=== PATIENT | female | born 1990 | race Two or more races ===

== ENCOUNTER 2020-12-10 05:11 | Inpatient (IN) | payer BC, MEDICAID ==
[~2020-12-10 05:11] MED LIST: Sodium Chloride 0.9% 10 ML Syringe FLUSH PRN
[2020-12-10] MEDS ORDERED: Metoclopramide 10 MG/2 ML SDV ONE (05:28)
[2020-12-10] MEDS ORDERED: Lactated Ringers 1,000 ML ONE (05:28)
[2020-12-10] MEDS ORDERED: Citric Acid/Sodium Citrate Solution 30 ML Cup ONE (05:28)
[2020-12-10] MEDS: Lactated Ringers 1,000 ML IV SCH ×2 (05:45→06:53)
[2020-12-10] MEDS ORDERED: Citric Acid/Sodium Citrate Solution 30 ML Cup PO ONE (06:45)
[2020-12-10] MEDS ORDERED: Metoclopramide 10 MG/2 ML SDV IVPUSH ONE (06:45)
[2020-12-10] MEDS ORDERED: ceFAZolin 2 GM in Premix Bag 1 BAG IV ONE (07:00)
[2020-12-10] MEDS ORDERED: Oxytocin/Lactated Ringers 10 UNIT/1,000 ML BAG IV SCH (07:00)
[2020-12-10] MEDS ORDERED: Bupivacaine 0.5% 30 ML SDV ONE (07:06)
[2020-12-10] MEDS ORDERED: Morphine PF 10 MG/10 ML SDV ONE (07:16)
[2020-12-10] MEDS ORDERED: ceFAZolin 1 GM Vial ONE ×2 (07:16)
[2020-12-10] MEDS ORDERED: Ketorolac 30 MG/ML SDV ONE (07:17)
[2020-12-10] MEDS ORDERED: Oxytocin 10 Units/1 ML SDV ONE (07:17)
--- NOTE | 2020-12-10 07:29 | PCM.PREANE ---
Preanesthetic Assessment - Procedure Proposed Procedure: epidural - Anesthesia/Transfusion/Family Hx Anesthesia History: Prior Anesthesia Without Reaction Family History of Anesthesia Reaction: No Transfusion History: No Prior Transfusion(s) - Review of Systems General: No Symptoms Pulmonary: No Symptoms Cardiovascular: Dyspnea on Exertion Gastrointestinal: No Symptoms Neurological: No Symptoms Other: Reports: None - Physical Assessment NPO Status Date: 12/09/20 NPO Status Time: 00:00 Vital Signs: Last Vital Signs Temp 36.5 C 12/10/20 05:33 Pulse 72 12/10/20 05:33 Resp 16 12/10/20 05:33 BP 119/88 12/10/20 05:33 Pulse Ox 99 12/10/20 05:33 Height: 1.65 m Weight: 67.585 kg ASA Class: 2 Mental Status: Alert & Oriented x3 Airway Class: Mallampati = 1 Dentition: Reports: Normal Dentition Thyro-Mental Finger Breadths: 3 Mouth Opening Finger Breadths: 3 ROM/Head Extension: Full Lungs: Clear to Auscultation, Normal Respiratory Effort Cardiovascular: Regular Rate, Regular Rhythm - Lab Values: Laboratory Last Values WBC 7.50 K/mm3 (3.98-10.04) 12/10/20 05:51 RBC 4.15 M/mm3 (3.98-5.22) 12/10/20 05:51 Hgb 12.8 gm/dl (11.2-15.7) 12/10/20 05:51 Hct 38.2 % (34.1-44.9) 12/10/20 05:51 MCV 92.0 fl (79.4-94.8) 12/10/20 05:51 MCH 30.8 pg (25.6-32.2) 12/10/20 05:51 MCHC 33.5 g/dl (32.2-35.5) 12/10/20 05:51 RDW Std Deviation 49.8 fL (36.4-46.3) H 12/10/20 05:51 Plt Count 185 K/mm3 (182-369) 12/10/20 05:51 MPV 11.6 fl (9.4-12.3) 12/10/20 05:51 Neut % (Auto) 64.5 % (34.0-71.1) 12/10/20 05:51 Lymph % (Auto) 26.1 % (19.3-51.7) 12/10/20 05:51 [place] % (Auto) 7.2 % (4.7-12.5) 12/10/20 05:51 Eos % (Auto) 1.6 (0.7-5.8) 12/10/20 05:51 Baso % (Auto) 0.1 % (0.1-1.2) 12/10/20 05:51 Neut # (Auto) 4.83 K/mm3 (1.56-6.13) 12/10/20 05:51 Lymph # (Auto) 1.96 K/mm3 (1.18-3.74) 12/10/20 05:51 [place] # (Auto) 0.54 K/mm3 (0.24-0.36) H 12/10/20 05:51 Eos # (Auto) 0.12 K/mm3 (0.04-0.36) 12/10/20 05:51 Baso # (Auto) 0.01 K/mm3 (0.01-0.08) 12/10/20 05:51 SARS-CoV-2 RNA (DAVID) Negative (NEGATIVE) 12/10/20 05:51 Blood Type O POSITIVE 12/10/20 05:51 Gel Antibody Screen Negative 12/10/20 05:51 - Allergies Allergies/Adverse Reactions: Allergies Allergy/AdvReac Type Severity Reaction Status Date / Time No Known Allergies Allergy Verified 12/10/20 00:48 - Anesthesia Plan Pre-Op Medication Ordered: None - Acknowledgements Anesthesia Type Planned: Spinal Pt an Appropriate Candidate for the Planned Anesthesia: Yes Alternatives and Risks of Anesthesia Discussed w Pt/Guardian: Yes Pt/Guardian Understands and Agrees with Anesthesia Plan: Yes PreAnesthesia Questionnaire - Past Health History Medical/Surgical History: Denies Medical/Surgical History Gastrointestinal History: Reports: GERD GAME AGENT History: Reports: - Past Surgical History Head Surgeries/Procedures: Reports: None - SUBSTANCE USE Tobacco Use Status *Q: Former Tobacco User Tobacco Use Within Last Twelve Months: Cigarettes Recreational Drug Use History: No - HOME MEDS Home Medications: Home Meds Ondansetron [Zofran ODT] 4 mg PO Q6H PRN 12/10/20 [History] No122/Iron/Folic Acid [ Multi Tablet] 1 each PO DAILY 12/10/20 [History] - CURRENT (IN HOUSE) MEDS Current Meds: Current Medications Cefazolin Sodium/Dextrose 2 gm (/ Premix) 50 mls @ 100 mls/hr IV ONETIME ONE Stop: 12/10/20 07:29 Oxytocin/Lactated Ringer's (Pitocin In Lr 10 Units/1,000 Ml) 10 unit in 1,000 mls @ 100 mls/hr IV ASDIRECTED SURAJ Lactated Ringer's (Ringers, Lactated) 1,000 mls @ 125 mls/hr IV ASDIRECTED SURAJ Last Admin: 12/10/20 06:53 Dose: 125 mls/hr Documented by: Sodium Chloride (Saline Flush) 10 ml FLUSH ASDIRECTED PRN PRN Reason: Keep Vein Open Discontinued Medications Bupivacaine HCl (Marcaine 0.5%) Confirm Administered Dose 30 ml .ROUTE .STK-MED ONE Stop: 12/10/20 07:07 Cefazolin Sodium (Ancef) Confirm Administered Dose 2 gm .ROUTE .STK-MED ONE Stop: 12/10/20 07:17 Cefazolin Sodium (Ancef) Confirm Administered Dose 2 gm .ROUTE .STK-MED ONE Stop: 12/10/20 07:17 Citric Acid/Sodium Citrate (Bicitra Solution) 30 ml PO ONETIME ONE Stop: 12/10/20 06:46 Last Admin: 12/10/20 07:09 Dose: 30 ml Documented by: Citric Acid/Sodium Citrate (Bicitra Solution) Confirm Administered Dose 30 ml .ROUTE .STK-MED ONE Stop: 12/10/20 05:29 Lactated Ringer's (Ringers, Lactated) Confirm Administered Dose 1,000 mls @ as directed .ROUTE .STK-MED ONE Stop: 12/10/20 05:29 Ketorolac Tromethamine (Toradol) Confirm Administered Dose 30 mg .ROUTE .STK-MED ONE Stop: 12/10/20 07:18 Metoclopramide HCl (Reglan) 10 mg IVPUSH ONETIME ONE Stop: 12/10/20 06:46 Last Admin: 12/10/20 07:09 Dose: 10 mg Documented by: Metoclopramide HCl (Reglan) Confirm Administered Dose 10 mg .ROUTE .STK-MED ONE Stop: 12/10/20 05:29 Morphine Sulfate (Duramorph Pf) Confirm Administered Dose 10 mg .ROUTE .STK-MED ONE Stop: 12/10/20 07:17 Oxytocin (Pitocin) Confirm Administered Dose 10 unit .ROUTE .STK-MED ONE Stop: 12/10/20 07:18
--- NOTE | 2020-12-10 08:32 | PCM.POSTAN ---
POST ANESTHESIA ASSESSMENT - MENTAL STATUS Mental Status: Alert, Oriented - VITAL SIGNS Vital Signs: Last Vital Signs Temp 36.5 C 12/10/20 05:33 Pulse 72 12/10/20 05:33 Resp 16 12/10/20 05:33 BP 119/88 12/10/20 05:33 Pulse Ox 99 12/10/20 05:33 - RESPIRATORY Respiratory Status: Respiratory Rate WNL, Airway Patent, O2 Saturation Stable - CARDIOVASCULAR CV Status: Pulse Rate WNL, Blood Pressure Stable - GASTROINTESTINAL GI Status: No Symptoms - PAIN Pain Score: 0 - POST OP HYDRATION Hydration Status: Adequate & Stable - OBSERVATIONS Free Text/Narrative:: no anesthesia complications noted
--- NOTE | 2020-12-10 08:59 | PCM.OPNOTE ---
- General Post-Op/Procedure Note Date of Surgery/Procedure: 12/10/20 Operative Procedure(s): repeat section Findings: viable female, weight 3800g, 9/9 APGARS at 0759. Primary Surgeon: Halima Álvarez Php Architect: Comfort Schmidt Fluid Replacement, Intraop: 2,200 Output, Urine Amount: 100 EBL in mLs: 900 Complications: None Condition: Good Free Text/Narrative:: Intake & Output 12/09/20 12/10/20 12/10/20 22:59 06:59 14:59 Output Total 100 Balance -100 The patient was taken to the operating room where spinal anesthesia was dosed to surgical levels without difficulty. The patient was prepped and draped in the usual sterile fashion in the dorsal supine position with a leftward tilt. A Pfannenstiel skin incision was made with the scalpel and carried through to the underlying layer of fascia. The fascia was incised in the midline and extended laterally using Palmer scissors. Liza clamps were used to elevate the superior aspect of the fascial incision, which was elevated, and the underlying rectus muscles were dissected off bluntly and using Palmer scissors. Attention was then turned to the inferior aspect of the fascial incision, which in similar fashion was grasped with Liza clamps, elevated, and the underlying rectus muscles were dissected off bluntly and using the palmer. The rectus muscles were dissected in the midline. The peritoneum was entered bluntly; this incision was extended superiorly and inferiorly with good visualization of the bladder. The bladder blade was inserted. The vesicouterine peritoneum was identified and entered sharply using Metzenbaum scissors. This incision was extended laterally and the bladder flap was created digitally. The bladder blade was reinserted. The lower uterine segment was incised in a transverse fashion using the scalpel and with digital traction. Clear fluid was noted. The was subsequently delivered by flexing the head to the incision. Body and shoulders followed without difficulty. The cord was clamped and cut. The infant was subsequently handed to the awaiting effervescent salts compounder whose presence had been requested.. The placenta was delivered spontaneously intact with a three-vessel cord noted. The uterus was exteriorized and cleared of all clots and debris. Hemostasis was visualized. Hemostasis was visualized bilaterally. The uterus was returned to the abdomen. The uterine incision was reexamined and it was noted to be hemostatic. The pelvis was copiously irrigated. The fascia was closed with 1 PDS suture, and the skin was closed with 3-0 monocryl. Sponge, lap, and instrument counts were correct x2. The patient was stable at the completion of the procedure and was subsequently transferred to the recovery room in stable condition.
[2020-12-10] MEDS ORDERED: Dextrose 5%-Lactated Ringers 1,000 ML IV SCH (09:29)
[2020-12-10] MEDS ORDERED: Acetaminophen/oxyCODONE 325-5 MG Tab PO PRN (09:29)
[2020-12-10] MEDS ORDERED: diphenhydrAMINE 50 MG/ML SDV IVPUSH PRN (09:29)
[2020-12-10] MEDS ORDERED: ePHEDrine 50 MG/ML SDV IVPUSH PRN (09:29)
[2020-12-10] MEDS ORDERED: Naloxone 0.4 MG/ML SDV IVPUSH PRN (09:29)
[2020-12-10] MEDS ORDERED: Ketorolac 30 MG/ML SDV IVPUSH SCH (13:30)
[2020-12-10] MEDS: Ketorolac 30 MG/ML SDV IVPUSH SCH ×2 (14:56→21:00)
[2020-12-11] MEDS: Ketorolac 30 MG/ML SDV IVPUSH SCH (02:17)
--- NOTE | 2020-12-11 07:22 | PCM.SN.2 ---
- Free Text/Narrative Note: Post Operative Progress Note POD #1 Subjective: Doing well overall. Ambulating minimally to the bathroom without difficulty. Lochia minimal. Gillespie draining clear urine. Tolerating regular diet without nausea or vomiting. Pain controlled with oral medications. Breast and bottlefeeding with minimal difficulty. Objective: Vitals: Vital Signs - 8 hr 12/10/20 12/10/20 12/11/20 23:56 23:57 01:00 Temperature 36.6 C Pulse, 75 73 Peripheral Respiratory 16 16 Rate Blood Pressure 101/64 O2 Sat by Pulse 98 100 100 Oximetry 12/11/20 12/11/20 12/11/20 02:00 03:00 03:11 Temperature 37.3 C Pulse, 77 Peripheral Respiratory 14 14 16 Rate Blood Pressure 98/60 O2 Sat by Pulse 100 98 Oximetry Physical Exam General: Alert and oriented, no acute distress Lungs: Clear to auscultation bilaterally Heart: Regular rate and rhythm Abdomen: Soft, minimal appropriate tenderness, non-distended, fundus midline, nontender and at the umbilicus Incision: Clean, dry and intact, no erythema, bleeding or drainage with Steri-Strips in place Extremities: No edema Labs: Laboratory Results - last 24 hr 12/11/20 Range/Units 04:55 WBC 11.89 H (3.98-10.04) K/mm3 RBC 4.04 (3.98-5.22) M/mm3 Hgb 12.3 (11.2-15.7) gm/dl Hct 37.3 (34.1-44.9) % MCV 92.3 (79.4-94.8) fl MCH 30.4 (25.6-32.2) pg MCHC 33.0 (32.2-35.5) g/dl RDW Std Deviation 50.3 H (36.4-46.3) fL Plt Count 183 (182-369) K/mm3 MPV 11.7 (9.4-12.3) fl Neut % (Auto) 78.7 H (34.0-71.1) % Lymph % (Auto) 13.7 L (19.3-51.7) % [place] % (Auto) 6.0 (4.7-12.5) % Eos % (Auto) 1.2 (0.7-5.8) Baso % (Auto) 0.2 (0.1-1.2) % Neut # (Auto) 9.37 H (1.56-6.13) K/mm3 Lymph # (Auto) 1.63 (1.18-3.74) K/mm3 [place] # (Auto) 0.71 H (0.24-0.36) K/mm3 Eos # (Auto) 0.14 (0.04-0.36) K/mm3 Baso # (Auto) 0.02 (0.01-0.08) K/mm3 ASSESSMENT: 30-year-old female -0-0-2 s/p repeat section POD #1 for history of section PLAN: Doing well Breast and bottlefeeding with minimal difficulty. Assist as needed Incision healing well. Continue to keep clean and dry. Lochia minimal. Continue to monitor for appropriate lochia. Continue routine post-operative care Discontinue Gillespie catheter this morning Anticipate discharge home tomorrow Charlie Gu MD 7:17 AM 12/11/2020
[2020-12-11] MEDS ORDERED: Ibuprofen 600 MG Tab PO PRN (08:30)
[2020-12-11] MEDS: Acetaminophen/oxyCODONE 325-5 MG Tab PO PRN ×3 (08:49→19:47)
[2020-12-11] MEDS: Docusate Sodium 100 MG Cap PO PRN ×2 (08:50→19:49)
[2020-12-11] MEDS ORDERED: Simethicone 80 MG Tab.Chew PO PRN (11:07)
--- NOTE | 2020-12-11 12:01 | PCM48HPAN ---
Post Anesthesia Note - EVALUATION WITHIN 48HRS OF ANESTHETIC Vital Signs in Normal Range: Yes Patient Participated in Evaluation: Yes Respiratory Function Stable: Yes Airway Patent: Yes Hydration Status Stable: Yes Pain Control Satisfactory: Yes Nausea and Vomiting Control Satisfactory: Yes Mental Status Recovered: Yes Vital Signs: Last Vital Signs Temp 99.1 F 12/11/20 03:11 Pulse 74 12/11/20 03:12 Resp 14 12/11/20 06:00 BP 98/60 12/11/20 03:11 Pulse Ox 100 12/11/20 06:00
[2020-12-12] MEDS: Acetaminophen/oxyCODONE 325-5 MG Tab PO PRN ×3 (01:33→11:23)
--- NOTE | 2020-12-12 10:24 | PCM.SN.2 ---
- Free Text/Narrative Note: Post Operative Progress Note POD #2 Subjective: Doing well overall. Ambulating without difficulty. Lochia minimal. Voiding without difficulty. Reports that she is passing flatus but has not had a bowel movement at this time. Tolerating regular diet without nausea or vomiting. Pain controlled with oral medications. Breast and bottlefeeding with minimal difficulty. Objective: Vitals: Vital Signs - 24 hr 12/11/20 12/11/20 12/11/20 14:22 14:23 19:52 Temperature 36.7 C 36.7 C 36.7 C Temperature [ Temporal] Pulse, 85 78 Peripheral Pulse, Peripheral [ Left Pulse Oximetry] Respiratory 15 15 16 Rate Blood Pressure 100/60 100/60 107/85 Blood Pressure [Right Upper Arm] O2 Sat by Pulse 94 L 94 L Oximetry 12/11/20 12/12/20 12/12/20 21:00 03:02 08:11 Temperature 36.6 C 36.5 C Temperature [ 37.1 C Temporal] Pulse, 77 70 Peripheral Pulse, 65 Peripheral [ Left Pulse Oximetry] Respiratory 16 12 16 Rate Blood Pressure 101/59 L 104/70 Blood Pressure 104/70 [Right Upper Arm] O2 Sat by Pulse 100 94 L 94 L Oximetry Physical Exam General: Alert and oriented, no acute distress Lungs: Clear to auscultation bilaterally Heart: Regular rate and rhythm Abdomen: Soft, minimal appropriate tenderness, non-distended, fundus midline, nontender and at the umbilicus Incision: Clean, dry and intact, no erythema, bleeding or drainage with Steri- Strips in place Extremities: No edema ASSESSMENT: 30-year-old female -0-0-2 s/p repeat section POD #2 for history of section PLAN: Doing well Breast and bottlefeeding with minimal difficulty. Assist as needed Incision healing well. Continue to keep clean and dry. Lochia minimal. Continue to monitor for appropriate lochia. Continue routine post-operative care Discharge home today Charlie Gu MD 10:24 AM 12/12/2020
--- NOTE | 2020-12-12 10:28 | PCM.DCSUM1 ---
Discharge Summary - Hospital Course Free Text/Narrative:: - General Post-Op/Procedure Note Date of Surgery/Procedure: 12/10/20 Operative Procedure(s): repeat section Findings: viable female, weight 3800g, 9/9 APGARS at 0759. Primary Surgeon: Halima Álvarez Boom Truck Driver: Comfort Schmidt Fluid Replacement, Intraop: 2,200 Output, Urine Amount: 100 EBL in mLs: 900 Complications: None Condition: Good Free Text/Narrative:: Intake & Output 12/09/20 12/10/20 12/10/20 22:59 06:59 14:59 Output Total 100 Balance -100 The patient was taken to the operating room where spinal anesthesia was dosed to surgical levels without difficulty. The patient was prepped and draped in the usual sterile fashion in the dorsal supine position with a leftward tilt. A Pfannenstiel skin incision was made with the scalpel and carried through to the underlying layer of fascia. The fascia was incised in the midline and extended laterally using Palmer scissors. Liza clamps were used to elevate the superior aspect of the fascial incision, which was elevated, and the underlying rectus muscles were dissected off bluntly and using Palmer scissors. Attention was then turned to the inferior aspect of the fascial incision, which in similar fashion was grasped with Liza clamps, elevated, and the underlying rectus muscles were dissected off bluntly and using the palmer. The rectus muscles were dissected in the midline. The peritoneum was entered bluntly; this incision was extended superiorly and inferiorly with good visualization of the bladder. The bladder blade was inserted. The vesicouterine peritoneum was identified and entered sharply using Metzenbaum scissors. This incision was extended laterally and the bladder flap was created digitally. The bladder blade was reinserted. The lower uterine segment was incised in a transverse fashion using the scalpel and with digital traction. Clear fluid was noted. The was subsequently delivered by flexing the head to the incision. Body and shoulders followed without difficulty. The cord was clamped and cut. The was subsequently handed to the awaiting spanisher whose presence had been requested.. The placenta was delivered spontaneously intact with a three-vessel cord noted. The uterus was exteriorized and cleared of all clots and debris. Hemostasis was visualized. Hemostasis was visualized bilaterally. The uterus was returned to the abdomen. The uterine incision was reexamined and it was noted to be hemostatic. The pelvis was copiously irrigated. The fascia was closed with 1 PDS suture, and the skin was closed with 3-0 monocryl. Sponge, lap, and instrument counts were correct x2. The patient was stable at the completion of the procedure and was subsequently transferred to the recovery room in stable condition. Diagnosis: Stroke: No - Discharge Data Discharge Date: 12/12/20 Discharge Disposition: Home, Self-Care 01 Condition: Good - Referral to Home Health Primary Care Physician: Halima Álvarez MD - Discharge Diagnosis/Problem(s) (1) 39 weeks gestation of SNOMED Code(s): 89398548 ICD Code: Z3A.39 - 39 WEEKS GESTATION OF Status: Acute Current Visit: Yes (2) delivery delivered SNOMED Code(s): 951713374 ICD Code: O82 - ENCOUNTER FOR DELIVERY WITHOUT INDICATION Status: Acute Current Visit: Yes - Patient Summary/Data Operative Procedure(s) Performed: repeat section Complications: None Consults: None Hospital Course: Kasey Hodges was admitted for repeat section. She was taken back to the OR and given spinal injection for anesthesia. She was prepped and draped in the normal fashion. On 12/10/2020 she had a normal repeat delivery of a live female infant at 07:59. Apgars of 9 and 9. Weight of 3800 g. She was closed in a normal fashion. There were no complications with the procedure. Please see the operative report for full details. Her post operative course was uneventful. Her pain was well controlled and she had minimal lochia. She was ambulating, tolerating a regular diet and voiding normally. She was passing flatus and has not had a bowel movement. She was breast and bottle feeding without difficulty. She was afebrile and her hematocrit was 37.3 on POD #1. She desired to be discharged home on the morning of POD #2. Her blood type is O+. - Patient Instructions Diet: Usual Diet as Tolerated Activity: Apply Ice, As Tolerated, No Lifting Over 20 Pounds, No Strenuous Activities Activity, Other: Nothing in the vagina for 6 weeks Driving: May Drive Today Showering/Bathing: February Shower Wound/Incision Care: Keep Operative Site/Wound Site Clean and Dry Notify Provider of: Fever, Increased Pain, Swelling and Redness, Drainage, Nausea and/or Vomiting Other/Special Instructions: Please contact your physician's office if you note any bleeding or pus coming from the abdominal incision. Please contact your physician's office if you have heavy vaginal bleeding enough to soak a pad in less than an hour for several hours. Monitor for any signs of an infection in the breasts with severe pain or redness of the breast. - Discharge Plan *PRESCRIPTION DRUG MONITORING PROGRAM REVIEWED*: No *COPY OF PRESCRIPTION DRUG MONITORING REPORT IN PATIENT SERVANDO: No Prescriptions/Med Rec: Acetaminophen/oxyCODONE [Percocet 325-5 MG] 1 - 2 tab PO Q4H PRN #30 tablet PRN Reason: Pain Home Medications: Home Meds Ondansetron [Zofran ODT] 4 mg PO Q6H PRN 12/10/20 [History] No122/Iron/Folic Acid [ Multi Tablet] 1 each PO DAILY 12/10/20 [History] Acetaminophen/oxyCODONE [Percocet 325-5 MG] 1 - 2 tab PO Q4H PRN #30 tablet 12/12/20 [Rx] Docusate Sodium [Colace] 100 mg PO Q12H PRN cap 12/12/20 [Rx] Ibuprofen [Motrin] 600 mg PO Q6H PRN tablet 12/12/20 [Rx] Simethicone 160 mg PO ASDIRECTED PRN tab.chew 12/12/20 [Rx] Patient Handouts: Delivery, Care After Referrals: Halima Álvarez MD [Primary Care Provider] - (2 weeks) - Discharge Summary/Plan Comment DC Time >30 min.: No - Patient Data Vitals - Most Recent: Last Vital Signs Temp 36.5 C 12/12/20 08:11 Pulse 70 12/12/20 08:11 Resp 16 12/12/20 08:11 BP 104/70 12/12/20 08:11 Pulse Ox 94 L 12/12/20 08:11 Weight - Most Recent: 67.585 kg I&O - Last 24 hours: Intake & Output 12/11/20 12/12/20 12/12/20 22:59 06:59 14:59 Intake Total 420 Balance 420 Med Orders - Current: Current Medications Diphenhydramine HCl (Benadryl) 25 mg IVPUSH Q6H PRN PRN Reason: Itching or Nausea Docusate Sodium (Colace) 100 mg PO Q12H PRN PRN Reason: Constipation Last Admin: 12/11/20 19:49 Dose: 100 mg Documented by: Ephedrine Sulfate (Ephedrine Sulfate) 5 mg IVPUSH SEECOMMENT PRN PRN Reason: Other Ibuprofen (Motrin) 600 mg PO Q6H PRN PRN Reason: mild pain or fever Last Admin: 12/11/20 13:06 Dose: 600 mg Documented by: Naloxone HCl (Narcan) 0.1 mg IVPUSH SEECOMMENT PRN PRN Reason: Respiratory Depression Oxycodone/Acetaminophen (Percocet 325-5 Mg) 1 tab PO Q4H PRN PRN Reason: Pain (moderate 4-6) Oxycodone/Acetaminophen (Percocet 325-5 Mg) 2 tab PO Q4H PRN PRN Reason: Pain (severe 7-10) Last Admin: 12/12/20 07:50 Dose: 2 tab Documented by: Simethicone (Simethicone) 160 mg PO ASDIRECTED PRN PRN Reason: gas pains Last Admin: 12/11/20 13:06 Dose: 160 mg Documented by: Discontinued Medications Bupivacaine HCl (Marcaine 0.5%) Confirm Administered Dose 30 ml .ROUTE .STK-MED ONE Stop: 12/10/20 07:07 Last Admin: 12/10/20 07:55 Dose: 20 ml Documented by: Cefazolin Sodium (Ancef) Confirm Administered Dose 2 gm .ROUTE .STK-MED ONE Stop: 12/10/20 07:17 Cefazolin Sodium (Ancef) Confirm Administered Dose 2 gm .ROUTE .STK-MED ONE Stop: 12/10/20 07:17 Citric Acid/Sodium Citrate (Bicitra Solution) 30 ml PO ONETIME ONE Stop: 12/10/20 06:46 Last Admin: 12/10/20 07:09 Dose: 30 ml Documented by: Citric Acid/Sodium Citrate (Bicitra Solution) Confirm Administered Dose 30 ml .ROUTE .STK-MED ONE Stop: 12/10/20 05:29 Last Admin: 12/10/20 13:48 Dose: Not Given Documented by: Cefazolin Sodium/Dextrose 2 gm (/ Premix) 50 mls @ 100 mls/hr IV ONETIME ONE Stop: 12/10/20 07:29 Last Admin: 12/10/20 13:48 Dose: Not Given Documented by: Oxytocin/Lactated Ringer's (Pitocin In Lr 10 Units/1,000 Ml) 10 unit in 1,000 mls @ 100 mls/hr IV ASDIRECTED [facility] Lactated Ringer's (Ringers, Lactated) 1,000 mls @ 125 mls/hr IV ASDIRECTED [facility] Last Admin: 12/10/20 06:53 Dose: 125 mls/hr Documented by: Lactated Ringer's (Ringers, Lactated) Confirm Administered Dose 1,000 mls @ as directed .ROUTE .STK-MED ONE Stop: 12/10/20 05:29 Last Admin: 12/10/20 13:48 Dose: Not Given Documented by: Dextrose/Lactated Ringer's (Dextrose 5%-Lactated Ringers) 1,000 mls @ 125 mls/hr IV ASDIRECTED [facility] Stop: 12/10/20 17:28 Last Admin: 12/10/20 15:34 Dose: 125 mls/hr Documented by: Ketorolac Tromethamine (Toradol) Confirm Administered Dose 30 mg .ROUTE .STK-MED ONE Stop: 12/10/20 07:18 Ketorolac Tromethamine (Toradol) 30 mg IVPUSH Q6H [facility] Stop: 12/11/20 01:31 Ketorolac Tromethamine (Toradol) 30 mg IVPUSH Q6H [facility] Stop: 12/11/20 02:31 Last Admin: 12/11/20 02:17 Dose: 30 mg Documented by: Metoclopramide HCl (Reglan) 10 mg IVPUSH ONETIME ONE Stop: 12/10/20 06:46 Last Admin: 12/10/20 07:09 Dose: 10 mg Documented by: Metoclopramide HCl (Reglan) Confirm Administered Dose 10 mg .ROUTE .STK-MED ONE Stop: 12/10/20 05:29 Last Admin: 12/10/20 13:48 Dose: Not Given Documented by: Miscellaneous Medication (Phenylephrine 1 Mg/10 Ml-Ns) Confirm Administered Dose 1 mg .ROUTE .STK-MED ONE Stop: 12/10/20 07:48 Morphine Sulfate (Duramorph Pf) Confirm Administered Dose 10 mg .ROUTE .STK-MED ONE Stop: 12/10/20 07:17 Oxytocin (Pitocin) Confirm Administered Dose 10 unit .ROUTE .STK-MED ONE Stop: 12/10/20 07:18 Sodium Chloride (Saline Flush) 10 ml FLUSH ASDIRECTED PRN PRN Reason: Keep Vein Open
== END 2020-12-12 11:25 | disposition home or self-care (01) | DRG 788 ==
LOC: JD.OB 05:11
PROVIDERS: ADMIT Obstetrics & Gynecology; ATTEND Obstetrics & Gynecology
PROC: 10D00Z1 Extraction of Products of Conception, Low, Open Approach (ICD-10-PCS; principal; 2020-12-10)
DX: O34.211 Maternal care for low transverse scar from previous cesarean delivery (principal); Z20.822 Contact with and (suspected) exposure to COVID-19; Z37.0 Single live birth; Z3A.39 39 weeks gestation of pregnancy; Z87.891 Personal history of nicotine dependence
CPT/HCPCS: 01961; 36415; 59025; 85025; 86850; 86900; 86901; A9270-GY; J0690; J1885; J2270; J2370; J2590; J2765; J3490; J7120; J7121; U0002